=== PATIENT | female | born 1980 | race Hispanic/Latino ===

== ENCOUNTER 2019-10-28 07:36 | Outpatient (CLI) | payer OTHER ==
--- NOTE | 2019-10-28 08:53 | ULT ---
ABDOMINAL ULTRASOUND: Date: 10/28/2019 HISTORY: Abdominal pain. Elevated liver enzymes. FINDINGS: Real-time imaging of the upper abdomen was performed. This shows a normal appearing gallbladder. Live r appears to be of increased echogenicity. It measures 17.0 cm in length. The spleen measures 8.2 cm. The common bile duct is in the 3.0 mm range. Pancreas is partially obscured. Abdominal aorta and IVC regions appear unremarkable. Right and left kidneys are within normal limits of size and not obstructed. IMPRESSION: Mild increased echogenicity of the liver suggesting fatty change. POS: [facility]
== END 2019-10-28 07:37 | disposition home or self-care (01) ==
LOC: SCSULT 07:36
PROVIDERS: ATTEND Family Medicine
DX: R74.8 Abnormal levels of other serum enzymes (principal); K76.89 Other specified diseases of liver
CPT/HCPCS: 93975